=== PATIENT | female | born 1995 | race Caucasian/White ===

== ENCOUNTER 2016-09-10 17:47 | Emergency (ER) | payer OTHER ==
--- NOTE | 2016-09-10 17:58 | PDOC ---
History of Present Illness - General History Source: Patient, Parent(s) Exam Limitations: No Limitations - History of Present Illness Initial Comments: 09/10/16 18:23 The patient is a 21 year old female (LMP 2 weeks ago), with a significant past medical history of chronic UTIs and hypothyroidism (on synthroid), who presents to the emergency department with complaints of a possible UTI and pelvic pain. The patient states that this morning she woke up with intense pelvic pain and what she thought had a UTI. She then went to urgent care around 1:30 pm this afternoon and was given macrobids, which she states worsened her pain. As per the patients mother, 2 hours prior to arrival that patient took 3 regular strength tylenol, and 30 minutes prior to arrival she took 3 advil but she has not felt any relief of her pain. She reports associated dysuria, frequency, urgency, hematuria, and back pain. The patient reports that earlier today when she urinated it appeared to look like there was gravel in the toilet bowl. She then decided to come into the emergency department with her mother due to the pain. Patient reports that she has regular periods and is on oral contraception. She denies chest pain, shortness of breath, headache and dizziness. She denies fever, chills, nausea, vomit, diarrhea and constipation. Allergies:Sulfa Social history: Never smoked, social alcohol use, denies illicit drug use Family Hx: No history of kidney stones <Mendy Luong - Last Filed: 09/10/16 18:23> <Ted Mohr - Last Filed: 09/13/16 07:18> - General Chief Complaint: Urinary Problem Stated Complaint: PELVIC PAIN POSSIBLE UTI Time Seen by Provider: 09/10/16 17:57 Past History <Mendy Luong - Last Filed: 09/10/16 18:23> <Ted Mohr - Last Filed: 09/13/16 07:18> - Past Medical History Allergies/Adverse Reactions: Allergies Allergy/AdvReac Type Severity Reaction Status Date / Time Sulfa (Sulfonamide Allergy Intermediate Swelling Verified 09/10/16 17:54 Antibiotics) Home Medications: Ambulatory Orders Levothyroxine Sodium [Synthroid] 88 mcg PO DAILY 09/10/16 Nitrofurantoin Macrocrystal [Nitrofurantoin] 100 mg PO DAILY 09/10/16 Norgestrel-Ethinyl Estradiol [Elinest-28 Tablet] 1 tab PO DAILY 09/10/16 Phenazopyridine HCl [Pyridium] 200 mg PO TID #20 tablet 09/10/16 Phenazopyridine HCl [Pyridium] 200 mg PO TID PRN #20 tablet 09/10/16 Tramadol HCl 50 mg PO QID PRN #12 tablet MDD 4 09/10/16 Tramadol HCl 50 mg PO QID PRN #12 tablet MDD 4 09/10/16 Review of Systems - Review of Systems Able to Perform ROS?: Yes Comments:: 09/10/16 18:23 CONSTITUTIONAL: Absent: fever, no chills, no fatigue EYES: Absent: visual changes ENT: Absent: ear pain, no sore throat CARDIOVASCULAR: Absent: chest pain, no palpitations RESPIRATORY: Absent: cough, no SOB GI: Absent: abdominal pain, no nausea, no vomiting, no constipation, no diarrhea GENITOURINARY: +Pelvic pain, +Dysuria, +Frequency, +Urgency, +Hematuria Absent: MUSKULOSKELETAL: +Back pain Absent: no arthralgia, no myalgia SKIN: Absent: rash NEURO: Absent: headache <Mendy Luong - Last Filed: 09/10/16 18:23> *Physical Exam - Vital Signs Last Vital Signs Temp Pulse Resp BP Pulse Ox 98.9 F 108 H 16 129/95 98 09/10/16 17:49 09/10/16 17:49 09/10/16 17:49 09/10/16 17:49 09/10/16 17:49 - Physical Exam Comments: 09/10/16 18:23 GENERAL: Well-appearing, well-nourished. No apparent distress. HEENT: Normocephalic, atraumatic. PERRL, EOM intact. CARDIOVASCULAR: Normal S1, S2. Regular rate and rhythm. PULMONARY: Clear to auscultation bilaterally. ABDOMEN: +Mild tenderness in the suprapublic region to deep palpation without rebound or guarding. There was no CVAT Soft, non-distended. Normal bowel bounds. EXTREMITIES: Normal ROM in all four extremities. No gross deformities. SKIN: Warm, dry. No rash NEUROLOGICAL: No focal neurological deficits. <Mendy Luong - Last Filed: 09/10/16 18:23> ED Treatment Course - ADDITIONAL ORDERS Additional order review: Laboratory Results 09/10/16 18:00 Urine Color Yellow Urine Appearance Clear Urine pH 6.0 Ur Specific [place] <= 1.005 Urine Protein Negative Urine Glucose (UA) Negative Urine Ketones Negative Urine Blood 3+ H Urine Nitrite Negative Urine Bilirubin Negative Urine Urobilinogen 0.2 e.u/dl Ur Leukocyte Esterase 3+ H Urine HCG, Qual Negative <Mendy Luong - Last Filed: 09/10/16 18:23> Medical Decision Making - Medical Decision Making 09/13/16 07:17 Physical exam showed no fever, CVA tenderness, or back pain. There was mild to moderate pain over the bladder to deep palpation with no rebound or guarding. Urinalysis showed red and white cells, consistent with cystitis. A urine culture is pending. Administration of Pyridium and tramadol greatly relieved the patient's pain. She will continue on these medications as needed, finish her antibiotic, follow- up with urologist. If there is fever, back pain, or increasing discomfort with urination, return to the emergency room. Fully ambulatory and in no significant pain or other distress upon discharge with her mother to follow-up as directed. <Ted Mohr - Last Filed: 09/13/16 07:18> *DC/Admit/Observation/Transfer - Attestations Scribe Attestion: 09/10/16 18:24 Documentation prepared by MATTHEW Edouard, acting as senior medical technologist for Ted Mohr MD. <Mendy Luong - Last Filed: 09/10/16 18:23> - Discharge Dispostion Admit: No <Ted Mohr - Last Filed: 09/13/16 07:18> Diagnosis at time of Disposition: Cystitis - Discharge Dispostion Disposition: HOME Condition at time of disposition: Improved - Prescriptions Prescriptions: Phenazopyridine HCl [Pyridium] 200 mg PO TID PRN #20 tablet PRN Reason: Pain Phenazopyridine HCl [Pyridium] 200 mg PO TID #20 tablet Tramadol HCl 50 mg PO QID PRN #12 tablet MDD 4 PRN Reason: Severe Pain Tramadol HCl 50 mg PO QID PRN #12 tablet MDD 4 PRN Reason: Severe Pain - Referrals Referrals: Frank Yancey MD., MD [Staff Physician] - 1 week - Patient Instructions Printed Discharge Instructions: DI for Acute Cystitis - Post Discharge Activity Work/School Note: Back to Work
[2016-09-10 18:08] LABS: URINE APPEARANCE Clear; URINE BILIRUBIN Negative (NEGATIVE); URINE GLUCOSE (UA) Negative (NEGATIVE); URINE KETONE Negative (NEGATIVE); URINE NITRITE Negative (NEGATIVE); URINE PROTEIN Negative (NEGATIVE); URINE UROBILINOGEN 0.2 E.U/dl (0.2-1.0)
[2016-09-10 18:10] LABS: URINE BLOOD 3+ (NEGATIVE); URINE LEUK ESTERASE 3+ (NEGATIVE)
[2016-09-10 18:11] VITALS: TEMP 98.9; BMI 22.1
[2016-09-10 18:11] LABS: URINE COLOR YELLOW
[2016-09-10] MEDS ORDERED: PHENAZOPYRIDINE HCL 100 MG TABLET (FP) PO ONE (18:18)
[2016-09-10] MEDS ORDERED: traMADol HCL 50 MG TABLET PO ONE (18:19)
[2016-09-10] MEDS ORDERED: PHENAZOPYRIDINE HCL 100 MG TABLET (FP) ONE (18:22)
[2016-09-10] MEDS ORDERED: traMADol HCL 50 MG TABLET ONE (18:22)
[2016-09-10 18:27] LABS: URINE WBC 40-60 (3-5)
[2016-09-10 18:52] VITALS: BP 112/86; PULSE 96
== END 2016-09-10 19:06 | disposition home or self-care (01) ==
LOC: FER 17:47
DX: N30.90 Cystitis, unspecified without hematuria (principal)
CPT/HCPCS: 81003; 81015; 84703; 87086; 87186; 99282-25